=== PATIENT | male | born 1950 ===

== ENCOUNTER 2022-07-04 08:18 | Outpatient (CLI) | payer BC | END 2022-07-04 08:19 | disposition home or self-care (01) | LOC: BICMAMMO 08:18 | PROVIDERS: ATTEND Family Medicine | DX: M81.0 Age-related osteoporosis without current pathological fracture (principal); M85.851 Other specified disorders of bone density and structure, right thigh; M85.852 Other specified disorders of bone density and structure, left thigh | CPT/HCPCS: 77080 ==